=== PATIENT | female | born 1985 | race Two or more races ===

== ENCOUNTER 2019-10-09 00:14 | Observation (INO) | payer OTHER ==
[~2019-10-09] VITALS: Ht 154.9 cm; Wt 86.6 kg
[2019-10-09 00:42] VITALS: BP 122/73
[2019-10-09] MEDS ORDERED: PREN1TAB80 PO (11:29)
[2019-10-10] MEDS ORDERED: IBUP-2071 PO (14:10)
== END 2019-10-09 03:10 | disposition home or self-care (01) ==
LOC: 4S 00:14
PROVIDERS: ADMIT Obstetrics & Gynecology; ATTEND Obstetrics & Gynecology
DX: O62.9 Abnormality of forces of labor, unspecified (principal); Z3A.38 38 weeks gestation of pregnancy
CPT/HCPCS: 59025; 81001; G0378

== ENCOUNTER 2019-10-09 11:06 | Inpatient (IN) | payer OTHER ==
[~2019-10-09] VITALS: Ht 160 cm; Wt 85.3 kg
[2019-10-09] MEDS ORDERED: PREN1TAB80 PO (11:29)
[2019-10-09] MEDS ORDERED: RINGERS SOLUTION,LACTATED 1,000 ML IV PRN (11:53)
[2019-10-09] MEDS ORDERED: RINGERS SOLUTION,LACTATED 1,000 ML IV SCH (11:53)
[2019-10-09] MEDS ORDERED: LIDOCAINE/PF 2% 5 ML VIAL ONE (11:59)
[2019-10-09] MEDS ORDERED: ROPIVACAINE HCL/PF 0.2% 100 ML ED ONE (11:59)
[2019-10-09] MEDS ORDERED: METHYLERGONOVINE MALEATE 0.2 MG/ML VIAL IM PRN (12:00)
[2019-10-09] MEDS ORDERED: CITRIC ACID/SODIUM CITRATE 30 ML SOLUTION UDCUP PO PRN (12:00)
[2019-10-09] MEDS ORDERED: METOCLOPRAMIDE HCL 5 MG/ML 2 ML VIAL IVP PRN (12:00)
[2019-10-09] MEDS ORDERED: FentaNYL CITRATE-PF 100 MCG/2 ML VIAL IVP PRN (12:00)
[2019-10-09] MEDS ORDERED: OXYTOCIN 30 UNITS/LACT RINGERS 500 ML IV PRN (12:06)
[2019-10-09 12:32] LABS: BASOPHILS % (AUTO) 0.3 % (0.0-2.0); EOSINOPHILS % (AUTO) 0 % (1.0-6.0); HEMATOCRIT 39.3 % (36-46); HEMOGLOBIN 12.9 g/dL (12.0-16.0); LYMPHOCYTES # (AUTO) 1.6 K/uL (1.0-4.8); LYMPHOCYTES % (AUTO) 11.6 % (22.0-44.0); MEAN CORPUSCULAR HEMOGLOBIN 29.1 pg (26.0-34.0); MEAN CORPUSCULAR HGB CONC 32.8 G/dL (31.0-37.0); MEAN CORPUSCULAR VOLUME 89 fL (80-100); MONOCYTES # (AUTO) 0.5 K/uL (0.1-1.0); MONOCYTES % (AUTO) 3.6 % (2.0-9.0); NEUTROPHILS # (AUTO) 11.7 K/uL (1.8-7.7); NEUTROPHILS % (AUTO) 84.5 % (40.0-70.0); PLATELET COUNT (AUTO)-OB 118 K/uL (150-450); RED BLOOD CELL COUNT(AUTO) 4.42 MIL/uL (4.00-5.20); RED CELL DISTRIBUTION WIDTH 14.7 % (11.5-14.5)
[2019-10-09 12:59] VITALS: BP 127/71
[2019-10-09] MEDS ORDERED: ROPIVACAINE HCL/PF 0.2% 100 ML ED PRN (13:00)
[2019-10-09] MEDS ORDERED: ONDANSETRON HCL 4 MG/2 ML VIAL IVP PRN (13:00)
[2019-10-09] MEDS ORDERED: NALBUPHINE HCL 10 MG/ML VIAL IVP PRN (13:00)
[2019-10-09] MEDS ORDERED: DiphenhydrAMINE HCL 50 MG/ML VIAL IVP PRN (13:00)
[2019-10-09] MEDS ORDERED: OXYTOCIN 30 UNITS/LACT RINGERS 500 ML IV ONE (19:35)
[2019-10-09] MEDS ORDERED: LANOLIN 7 GM OINTMENT TP PRN (19:45)
[2019-10-09] MEDS ORDERED: OxyCODONE HCL/ACETAMINOPHEN 5-325 MG TABLET PO PRN ×2 (19:45)
[2019-10-09] MEDS ORDERED: MAGNESIUM HYDROXIDE SUSPENSION 30 ML UDCUP PO PRN (19:45)
[2019-10-09] MEDS ORDERED: GLYCERIN/WITCH HAZEL LEAF 40 PADS JAR TP PRN (19:45)
[2019-10-09] MEDS: IBUPROFEN 800 MG TABLET PO PRN (19:54)
[2019-10-09] MEDS ORDERED: BENZOCAINE 20%/MENTHOL 56 GM SPRAY CANISTER TP ONE (20:30)
[2019-10-10] MEDS: IBUPROFEN 800 MG TABLET PO PRN ×2 (03:41→10:19)
[2019-10-10 06:16] LABS: BASOPHILS % (AUTO) 0.2 % (0.0-2.0); EOSINOPHILS % (AUTO) 0.3 % (1.0-6.0); HEMATOCRIT 35.3 % (36-46); HEMOGLOBIN 11.7 g/dL (12.0-16.0); LYMPHOCYTES # (AUTO) 2.5 K/uL (1.0-4.8); LYMPHOCYTES % (AUTO) 18.4 % (22.0-44.0); MEAN CORPUSCULAR HEMOGLOBIN 29.7 pg (26.0-34.0); MEAN CORPUSCULAR VOLUME 90 fL (80-100); MONOCYTES # (AUTO) 0.9 K/uL (0.1-1.0); MONOCYTES % (AUTO) 7.1 % (2.0-9.0); NEUTROPHILS # (AUTO) 9.9 K/uL (1.8-7.7); PLATELET COUNT (AUTO)-OB 113 K/uL (150-450); RED BLOOD CELL COUNT(AUTO) 3.93 MIL/uL (4.00-5.20); RED CELL DISTRIBUTION WIDTH 14.8 % (11.5-14.5)
[2019-10-10] MEDS ORDERED: IBUP-2071 PO (14:10)
[2019-10-10] MEDS ORDERED: BENZOCAINE 20%/MENTHOL 56 GM SPRAY CANISTER TP ONE (18:57)
== END 2019-10-10 19:40 | disposition home or self-care (01) | DRG 807 ==
LOC: OBSVTOIN 11:06 → UNDOADMIN 11:06 → 4S 11:06 → INTOOBSV 11:06 → OBSVTOIN 12:07 → 4S 12:07
PROVIDERS: ADMIT Obstetrics & Gynecology; ATTEND Obstetrics & Gynecology
PROC: 0W8NXZZ Division of Female Perineum, External Approach (ICD-10-PCS; principal; 2019-10-09)
PROC: 10D07Z6 Extraction of Products of Conception, Vacuum, Via Natural or Artificial Opening (ICD-10-PCS; 2019-10-09)
PROC: 3E0R3BZ Introduction of Anesthetic Agent into Spinal Canal, Percutaneous Approach (ICD-10-PCS; 2019-10-09)
PROC: 00HU33Z Insertion of Infusion Device into Spinal Canal, Percutaneous Approach (ICD-10-PCS; 2019-10-09)
DX: O77.0 Labor and delivery complicated by meconium in amniotic fluid (principal); Z37.0 Single live birth; O66.5 Attempted application of vacuum extractor and forceps; Z3A.38 38 weeks gestation of pregnancy
CPT/HCPCS: 86850; 86900; 86901; 99219; J2590; J2795; J3490; J7120